=== PATIENT | female | born 1935 | race African-American/Black ===

== ENCOUNTER 2023-10-26 10:25 | Emergency (ER) | payer OTHER, BC ==
[2023-10-26 11:16] VITALS: PULSE 75; RESP 18; TEMP 98.7; BMI 25.5
[2023-10-26] MEDS ORDERED: ACETAMINOPHEN INJECTION 100 ML IVPB ONE (11:33)
[2023-10-26 11:37] LABS: BASO % 0.5 % (0-2.0); HEMATOCRIT 35.4 % (32.4-45.2); HEMOGLOBIN 11.4 GM/dL (10.7-15.3); MCH 25.2 pg (25.7-33.7); MCHC 32.1 g/dl (32.0-36.0); MEAN CELL VOLUME 78.5 fl (80-96); MEAN PLT VOLUME 7.9 fl (7.5-11.1); MONO % 7.6 % (3.8-10.2); NEUT % 61.9 % (42.8-82.8); PLATELET COUNT 336 10^3/uL (134-434); RDW 16.3 % (11.6-15.6); WHITE BLOOD COUNT 5.1 K/mm3 (4.0-10.0)
[2023-10-26 11:48] LABS: INR 1.05 (0.83-1.09); PROTHROMBIN TIME (PATIENT) 12.2 SEC (9.7-13.0)
[2023-10-26 11:51] LABS: ACTIVATED PTT 28.2 SECONDS (25.2-36.5)
[2023-10-26] MEDS: ACETAMINOPHEN 1000 MG/100 ML BAG IVPB ONE (11:55)
[2023-10-26 11:58] LABS: PH,URINE 7.5 (5.0-8.0); URINE APPEARANCE CLEAR; URINE BILIRUBIN NEGATIVE (NEGATIVE); URINE COLOR YELLOW; URINE GLUCOSE (UA) NEGATIVE (NEGATIVE); URINE KETONE NEGATIVE (NEGATIVE); URINE LEUK ESTERASE NEGATIVE (NEGATIVE); URINE NITRITE NEGATIVE (NEGATIVE); URINE PROTEIN NEGATIVE (NEGATIVE); URINE UROBILINOGEN 0.2 mg/dL (0.2-1.0)
[2023-10-26 12:01] LABS: POTASSIUM 4.7 mmol/L (3.5-5.1)
[2023-10-26 12:06] LABS: ALBUMIN 3.6 g/dl (3.4-5.0); BLOOD UREA NITROGEN 23.9 mg/dL (7-18); CALCIUM 9.6 mg/dL (8.5-10.1)
[2023-10-26 12:09] LABS: CREATININE 0.9 mg/dL (0.55-1.3)
[2023-10-26 12:10] LABS: BILIRUBIN,TOTAL 0.3 mg/dL (0.2-1); TOT PROT 7.2 g/dl (6.4-8.2)
[2023-10-26 15:53] VITALS: BP 150/68
== END 2023-10-26 15:53 | disposition home or self-care (01) ==
LOC: JER 10:25
PROC: 3E033NZ Introduction of Analgesics, Hypnotics, Sedatives into Peripheral Vein, Percutaneous Approach (ICD-10-PCS; principal; 2023-10-26)
DX: R10.11 Right upper quadrant pain (principal); R42 Dizziness and giddiness; J34.89 Other specified disorders of nose and nasal sinuses; Z20.822 Contact with and (suspected) exposure to COVID-19
CPT/HCPCS: 0241U-QW; 36415; 71045-TC-FY; 74177-TC; 80053; 81003; 83690; 84484; 85025; 85610; 85730; 87086; 93005; 93010; 99285-25; J0131

== ENCOUNTER 2023-11-17 15:38 | Emergency (ER) | payer OTHER, BC ==
[2023-11-17 15:49] VITALS: BMI 39.3
[2023-11-17] MEDS ORDERED: LABETALOL HCL 200 MG TABLET (FP) ONE (16:34)
[2023-11-17] MEDS: LABETALOL HCL 200 MG TABLET (FP) PO ONE (16:38)
[2023-11-17] MEDS ORDERED: ACETAMINOPHEN INJECTION 100 ML IVPB ONE (17:14)
[2023-11-17] MEDS: ACETAMINOPHEN 1000 MG/100 ML BAG IVPB ONE (17:20)
[2023-11-17 17:41] LABS: BASO % 0.9 % (0-2.0); EOS % 1.8 % (0-4.5); HEMATOCRIT 31.7 % (32.4-45.2); HEMOGLOBIN 10.5 GM/dL (10.7-15.3); LYMPH % 32.9 % (8-40); MCH 26.2 pg (25.7-33.7); MCHC 33.1 g/dl (32.0-36.0); MEAN CELL VOLUME 79.1 fl (80-96); MEAN PLT VOLUME 7.8 fl (7.5-11.1); MONO % 9.6 % (3.8-10.2); NEUT % 54.8 % (42.8-82.8); PLATELET COUNT 275 10^3/uL (134-434); RBC 4.01 M/mm3 (3.60-5.2); RDW 16.8 % (11.6-15.6); WHITE BLOOD COUNT 4.9 K/mm3 (4.0-10.0)
[2023-11-17 17:57] VITALS: BP 137/62; PULSE 71; RESP 18; TEMP 98.4
[2023-11-17 17:59] LABS: POTASSIUM 4.7 mmol/L (3.5-5.1)
[2023-11-17 18:01] LABS: CALCIUM 8.9 mg/dL (8.5-10.1)
[2023-11-17 18:02] LABS: ALBUMIN 3.5 g/dl (3.4-5.0); BLOOD UREA NITROGEN 17.9 mg/dL (7-18); MAGNESIUM 2.3 mg/dL (1.8-2.4)
[2023-11-17 18:05] LABS: CREATININE 0.9 mg/dL (0.55-1.3)
[2023-11-17 18:06] LABS: TOT PROT 6.5 g/dl (6.4-8.2)
[2023-11-17 18:07] LABS: BILIRUBIN,TOTAL 0.2 mg/dL (0.2-1)
== END 2023-11-17 18:52 | disposition home or self-care (01) ==
LOC: JER 15:38
PROC: 3E030NZ Introduction of Analgesics, Hypnotics, Sedatives into Peripheral Vein, Open Approach (ICD-10-PCS; principal; 2023-11-17)
DX: R51.9 Headache, unspecified (principal); I10 Essential (primary) hypertension; R04.0 Epistaxis
CPT/HCPCS: 36415; 70450-TC; 71045-TC-FY; 80053; 83735; 84484; 85025; 93005; 93010; 96374; 99285-25; J0131

== ENCOUNTER 2023-11-24 14:30 | Emergency (ER) | payer OTHER, BC ==
[2023-11-24 14:48] VITALS: RESP 18; TEMP 98.7; BMI 26.9
[2023-11-24] MEDS: SODIUM CHLORIDE 0.9% 500 ML INFUS.BAG IV ONE (16:39)
[2023-11-24 16:52] LABS: URINE APPEARANCE CLEAR; URINE BILIRUBIN NEGATIVE (NEGATIVE); URINE COLOR YELLOW; URINE GLUCOSE (UA) NEGATIVE (NEGATIVE); URINE KETONE NEGATIVE (NEGATIVE); URINE LEUK ESTERASE NEGATIVE (NEGATIVE); URINE NITRITE NEGATIVE (NEGATIVE); URINE PROTEIN NEGATIVE (NEGATIVE); URINE UROBILINOGEN 0.2 mg/dL (0.2-1.0)
[2023-11-24 16:56] LABS: BASO % 0.7 % (0-2.0); EOS % 2.4 % (0-4.5); HEMATOCRIT 33.5 % (32.4-45.2); HEMOGLOBIN 10.9 GM/dL (10.7-15.3); LYMPH % 28.6 % (8-40); MCH 25.5 pg (25.7-33.7); MCHC 32.5 g/dl (32.0-36.0); MEAN CELL VOLUME 78.5 fl (80-96); MONO % 8.7 % (3.8-10.2); NEUT % 59.6 % (42.8-82.8); PLATELET COUNT 323 10^3/uL (134-434); RBC 4.27 M/mm3 (3.60-5.2); RDW 16.9 % (11.6-15.6); WHITE BLOOD COUNT 5.5 K/mm3 (4.0-10.0)
[2023-11-24 17:10] LABS: POTASSIUM 5.3 mmol/L (3.5-5.1)
[2023-11-24 17:13] LABS: ALBUMIN 3.8 g/dl (3.4-5.0); BLOOD UREA NITROGEN 20.6 mg/dL (7-18); MAGNESIUM 2.5 mg/dL (1.8-2.4)
[2023-11-24 17:16] LABS: PHOSPHOROUS 3.3 mg/dL (2.5-4.9)
[2023-11-24 17:18] LABS: BILIRUBIN,TOTAL 0.2 mg/dL (0.2-1); TOT PROT 7.3 g/dl (6.4-8.2)
[2023-11-24 18:46] VITALS: BP 152/71; PULSE 78
== END 2023-11-24 19:49 | disposition home or self-care (01) ==
LOC: JER 14:30
DX: R55 Syncope and collapse (principal); Z20.822 Contact with and (suspected) exposure to COVID-19
CPT/HCPCS: 0241U-QW; 36415; 71045-TC-FY; 71046-TC-FY; 80053; 81003; 82962; 83735; 84100; 84484; 85025; 87086; 93005; 93010; 99285-25

== ENCOUNTER 2024-07-14 10:26 | Emergency (ER) | payer OTHER, BC ==
[2024-07-14 11:20] VITALS: TEMP 98.7; BMI 28.6
[2024-07-14 13:42] LABS: BASO % 0.6 % (0-2.0); EOS % 1.4 % (0-4.5); HEMATOCRIT 35.7 % (32.4-45.2); HEMOGLOBIN 11.4 GM/dL (10.7-15.3); LYMPH % 21.2 % (8-40); MCH 25.1 pg (25.7-33.7); MEAN CELL VOLUME 78.6 fl (80-96); MEAN PLT VOLUME 8.3 fl (7.5-11.1); NEUT % 70.8 % (42.8-82.8); PLATELET COUNT 341 10^3/uL (134-434); RBC 4.54 M/mm3 (3.60-5.2); RDW 16.5 % (11.6-15.6); WHITE BLOOD COUNT 6.4 K/mm3 (4.0-10.0)
[2024-07-14 13:49] LABS: INR 0.97 (0.83-1.09); PROTHROMBIN TIME (PATIENT) 11.2 SEC (9.7-13.0)
[2024-07-14 13:52] LABS: ACTIVATED PTT 30.2 SECONDS (25.2-36.5)
[2024-07-14 14:02] LABS: POTASSIUM 4.6 mmol/L (3.5-5.1)
[2024-07-14 14:04] LABS: CALCIUM 9.6 mg/dL (8.5-10.1)
[2024-07-14 14:05] LABS: ALBUMIN 3.7 g/dl (3.4-5.0); BLOOD UREA NITROGEN 19.6 mg/dL (7-18)
[2024-07-14 14:08] LABS: CREATININE 0.9 mg/dL (0.55-1.3)
[2024-07-14 14:09] LABS: BILIRUBIN,TOTAL 0.3 mg/dL (0.2-1); TOT PROT 7.5 g/dl (6.4-8.2)
[2024-07-14 19:09] VITALS: BP 149/66; PULSE 64; RESP 18
== END 2024-07-14 19:57 | disposition home or self-care (01) ==
LOC: JER 10:26
DX: R04.2 Hemoptysis (principal); Z20.822 Contact with and (suspected) exposure to COVID-19
CPT/HCPCS: 0241U-QW; 36415; 71046-TC-FY; 71275-TC; 80053; 84484; 85025; 85610; 85730; 86850; 86900; 86901; 93005; 93010; 99285-25; Q9967

== ENCOUNTER 2024-11-18 06:22 | Emergency (ER) | payer OTHER, BC ==
[2024-11-18 06:26] VITALS: TEMP 97.9; BMI 30.1
[2024-11-18 07:13] VITALS: RESP 12
[2024-11-18] MEDS: SODIUM CHLORIDE 0.9% 500 ML INFUS.BAG IV ONE (07:57)
[2024-11-18] MEDS ORDERED: FAMOTIDINE 20 MG/50 ML IVPB 20 MG/50 ML MG IVPB ONE (08:06)
[2024-11-18] MEDS ORDERED: MAG HYDROX/AL HYDROX/SIMETH 30 ML UNIT-DOSE CUP ONE (08:06)
[2024-11-18] MEDS: FAMOTIDINE 20 MG/50 ML IVPB 20 MG/50 ML MG IVPB ONE (08:11)
[2024-11-18] MEDS: MAG HYDROX/AL HYDROX/SIMETH 30 ML UNIT-DOSE CUP PO ONE (08:11)
[2024-11-18 08:16] LABS: ABSOLUTE IMMATURE GRANULOCYTES 0.02 x10^3/uL (0.0-0.031); BASOPHILS # 0.02 x10^3/uL (0.01-0.08); EOSINOPHIL % 0.7 % (0.7-5.8); EOSINOPHILS # 0.05 x10^3/uL (0.04-0.36); HEMATOCRIT 32.8 % (34.1-44.9); HEMOGLOBIN 10.2 g/dL (11.2-15.7); MCHC 31.1 g/dl (32.2-35.5); MEAN PLT VOLUME 10.3 fl (9.4-12.3); MONOCYTE # 0.41 x10^3/uL (0.24-0.86); PLATELET COUNT 351 x10^3/uL (182-369); RDW 16.2 % (12.5-17.0)
[2024-11-18 08:59] LABS: POTASSIUM 4.6 mmol/L (3.5-5.1)
[2024-11-18 09:01] LABS: CALCIUM 9.3 mg/dL (8.5-10.1)
[2024-11-18 09:02] LABS: ALBUMIN 3.4 g/dl (3.4-5.0); BLOOD UREA NITROGEN 23.4 mg/dL (7-18); MAGNESIUM 2.2 mg/dL (1.8-2.4)
[2024-11-18 09:05] LABS: CREATININE 0.9 mg/dL (0.55-1.3)
[2024-11-18 09:06] LABS: TOT PROT 6.8 g/dl (6.4-8.2)
[2024-11-18 09:07] LABS: BILIRUBIN,TOTAL 0.2 mg/dL (0.2-1)
[2024-11-18 09:22] VITALS: BP 161/62; PULSE 71
== END 2024-11-18 10:39 | disposition home or self-care (01) ==
LOC: JER 06:22
PROC: 3E033GC Introduction of Other Therapeutic Substance into Peripheral Vein, Percutaneous Approach (ICD-10-PCS; principal; 2024-11-18)
DX: R42 Dizziness and giddiness (principal); R94.31 Abnormal electrocardiogram [ECG] [EKG]
CPT/HCPCS: 0241U-QW; 36415; 71045-TC-FY; 80053; 83735; 84484; 85025; 93005; 93010; 99285-25